=== PATIENT | male | born 1995 | race Caucasian/White ===

== ENCOUNTER 2018-01-17 13:17 | Emergency (ER) | payer OTHER ==
[2018-01-17] MEDS: NS 1,000 ML IV (14:19)
[2018-01-17 14:22] LABS: BASO # 0.1 10^3/uL (0.0-0.2); EOS # 0.3 10^3/uL (0.0-0.50); EOS % 4.1 % (0.0-3.0); HEMATOCRIT 46.8 % (42.0-52.0); HEMOGLOBIN 15.5 g/dl (13.5-17.5); IMMATURE GRANULOCYTE % 0.5 % (0-3.0); LYMPH # 1.8 10^3/uL (1.5-6.5); LYMPH % 29.2 % (24.0-44.0); MEAN CORPUSCULAR HEMOGLOBIN 31.5 pg (27.0-33.0); MEAN CORPUSCULAR HGB CONC 33.1 g/dl (32.0-36.5); MEAN CORPUSCULAR VOLUME 95.1 fl (80.0-96.0); MONO # 0.6 10^3/uL (0.0-0.8); NEUTROPHILS # 3.4 10^3/uL (1.8-7.7); NEUTROPHILS % 56.2 % (36.0-66.0); PLATELET COUNT, AUTOMATED 270 10^3/uL (150-450); RED BLOOD COUNT 4.92 10^6/uL (4.30-6.10); RED CELL DISTRIBUTION WIDTH 12.5 % (11.5-14.5); WHITE BLOOD COUNT 6.1 10^3/uL (4.0-10.0)
[2018-01-17] MEDS: BISACODYL 10 MG SUPP PR (14:30)
[2018-01-17 14:51] LABS: INR 0.99; PROTHROMBIN TIME 13.2 SECONDS (12.4-14.5)
[2018-01-17 14:52] LABS: PARTIAL THROMBOPLASTIN TIME 25.8 SECONDS (26.8-37.9)
[2018-01-17 14:57] LABS: ANION GAP 5 MEQ/L (8-16); BLOOD UREA NITROGEN 12 MG/DL (7-18); CALCIUM LEVEL 9.5 MG/DL (8.5-10.1); CARBON DIOXIDE LEVEL 33 MEQ/L (21-32); CHLORIDE LEVEL 104 MEQ/L (98-107); CREATININE FOR GFR 1.02 MG/DL (0.70-1.30); GLOMERULAR FILTRATION RATE > 60.0 (>60); GLUCOSE, FASTING 104 MG/DL (70-100); POTASSIUM SERUM 4.2 MEQ/L (3.5-5.1); SODIUM LEVEL 142 MEQ/L (136-145)
== END 2018-01-17 17:14 | disposition home or self-care (01) ==
LOC: M ED 13:17
DX: R19.8 Other specified symptoms and signs involving the digestive system and abdomen (principal); R10.31 Right lower quadrant pain; F17.210 Nicotine dependence, cigarettes, uncomplicated
CPT/HCPCS: 74021

== ENCOUNTER 2019-04-04 17:19 | Inpatient (IN) | payer OTHER ==
[~2019-04-04] VITALS: Ht 193 cm; Wt 97.7 kg
[2019-04-04] MEDS ORDERED: NS 1,000 ML IV ONE (18:00)
[2019-04-04 18:21] LABS: HEMATOCRIT 44.3 % (42.0-52.0); HEMOGLOBIN 14.9 g/dl (13.5-17.5); MEAN CORPUSCULAR HEMOGLOBIN 32.2 pg (27.0-33.0); MEAN CORPUSCULAR HGB CONC 33.6 g/dl (32.0-36.5); MEAN CORPUSCULAR VOLUME 95.7 fl (80.0-96.0); PLATELET COUNT, AUTOMATED 287 10^3/uL (150-450); RED BLOOD COUNT 4.63 10^6/uL (4.30-6.10); WHITE BLOOD COUNT 8.3 10^3/uL (4.0-10.0)
[2019-04-04 18:31] LABS: INR 1.07; PROTHROMBIN TIME 13.6 SECONDS (11.8-14.0)
[2019-04-04 18:32] LABS: PARTIAL THROMBOPLASTIN TIME 26.9 SECONDS (25.0-38.4)
[2019-04-04] MEDS ORDERED: NS 1,000 ML IV SCH ×2 (18:34→22:30)
[2019-04-04] MEDS ORDERED: PROPOFOL 200 MG/20 ML VIAL As Ordered ONE (18:44)
[2019-04-04] MEDS ORDERED: ONDANSETRON 4MG/2ML VIAL (J2405) IV ONE (18:45)
[2019-04-04] MEDS: PROPOFOL 200 MG/20 ML VIAL IV PRN ×4 (18:48→19:08)
[2019-04-04 18:49] LABS: BLOOD UREA NITROGEN 4 MG/DL (7-18); CALCIUM LEVEL 8.9 MG/DL (8.5-10.1); CARBON DIOXIDE LEVEL 28 MEQ/L (21-32); CHLORIDE LEVEL 108 MEQ/L (98-107); CREATININE FOR GFR 0.85 MG/DL (0.70-1.30); ETHYL ALCOHOL (ETHANOL) 0.252 % (0.000-0.010); GLOMERULAR FILTRATION RATE > 60.0 (>60); GLUCOSE, FASTING 92 MG/DL (70-100); SODIUM LEVEL 143 MEQ/L (136-145)
[2019-04-04] MEDS: KETAMINE HCL 200 MG/20 ML VIAL IV ONE ×2 (18:49→18:52)
[2019-04-04] MEDS ORDERED: OXYC1TAB23 PO (19:16)
[2019-04-04] MEDS ORDERED: PERCOCET 5MG/325MG TAB PO PRN (22:30)
[2019-04-04 23:00] VITALS: BP 163/88
[2019-04-05] VITALS (19 sets, daily range): BP systolic 135–170; BP diastolic 62–94
--- NOTE | 2019-04-05 05:30 | HPE ---
DATE OF ADMISSION: 04/04/2019 CHIEF COMPLAINT: Left ankle pain and deformity. HISTORY AND PHYSICAL: [place] slipped and injured his left ankle, noticed immediate deformity and presented promptly to [facility] Emergency Room. I was consulted at that time. PAST MEDICAL HISTORY: Only significant for mononucleosis. He was diagnosed about six weeks ago and is currently asymptomatic from that. PAST SURGICAL HISTORY: None. MEDICATIONS: None. ALLERGIES: None. SOCIAL HISTORY: He does smoke one pack per day. 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 REVIEW OF SYSTEMS: Recently no fevers, chills, nausea, vomiting, diarrhea, constipation, chest pain or shortness of breath. PHYSICAL EXAMINATION: GENERAL: Awake, alert and oriented times three. Well-appearing male in no acute distress. He is slightly visibly intoxicated. CARDIOVASCULAR: Regular rate and rhythm. PULMONARY: No increased work of breathing. ABDOMEN: Soft, nontender, nondistended. EXAMINATION OF THE LEFT ANKLE: There is significant deformity about the ankle consistent with the dislocation distally. He does have 2+ dorsalis pedis pulse with sensation intact to light touch in less than 2 seconds capillary refill in all of his toes. The skin is a somewhat tense and blanched on the medial side but it is intact and there is no active bleeding. The ipsilateral leg and knee is grossly atraumatic. X-RAY: X-ray of the left ankle shows fracture dislocation. ASSESSMENT: Left ankle fracture dislocation as above. The risks and benefits of treatment options were discussed and after obtaining consent the left ankle was reduced under sedation provided by the emergency department. I molded the splint; however, the medial clear space was still wide on postreduction x-rays. I did try to redo the splint, molding it a little bit more aggressively and still was unable to maintain a reduction of the medial clear space as again this is a highly unstable injury. Post reduction he is much more comfortable, moving his toes freely. He still has palpable 2+ dorsalis pedis pulse with less than 2 seconds capillary refill and sensation intact to light touch in all of his toes. PLAN: Plan at this time is he will be admitted overnight, elevate the ankle to control swelling. I discussed the case with the anesthesia staff and I will plan for surgery tomorrow morning given his nothing by mouth status and his alcohol status with elevated blood alcohol level we would have to wait certainly for the operation and he has elected to go forward with the left ankle open reduction internal fixation. I will obtain the formal consent for that tomorrow morning. Again for the postreduction x-rays there is still widening of the medial clear space but the talus is reduced underneath the tibia, significantly improved certainly from his injury films and will get the ankle fully reduced and stabilized as soon as we can reasonably. BRAD
--- NOTE | 2019-04-05 07:20 | REP ---
Clinical: Status post reduction. Technique: Portable AP and lateral views of the left ankle. Comparison: 04/04/2019 at 05:45 p.m.. Findings: Fracture dislocation involving the distal fibular metaphysis and ankle joint are again appreciated. Impression: Continued fracture dislocation at the ankle with improved alignment. Electronically Signed by Adama Montenegro MD 04/05/2019 07:11 A
[2019-04-05] MEDS ORDERED: LIDOCAINE 2% INJ 100 MG/5 ML SDV (FOR ANES.) As Ordered ONE (08:19)
[2019-04-05] MEDS ORDERED: ROCURONIUM BROMIDE 50 MG/5 ML VIAL As Ordered ONE (08:19)
[2019-04-05] MEDS ORDERED: dexameTHASONE 4 MG/ML 1ML VIAL (J1100) As Ordered ONE (08:19)
[2019-04-05] MEDS ORDERED: ONDANSETRON 4MG/2ML VIAL (J2405) As Ordered ONE (08:19)
[2019-04-05] MEDS ORDERED: PROPOFOL 200 MG/20 ML VIAL As Ordered ONE ×2 (08:19→12:03)
[2019-04-05] MEDS ORDERED: fentaNYL 250 MCG/5 ML INJECTION (J3010) As Ordered ONE (08:20)
[2019-04-05] MEDS ORDERED: MIDAZOLAM INJ 2 MG/2 ML VIAL (J2250) As Ordered ONE ×2 (08:20→11:07)
--- NOTE | 2019-04-05 08:41 | REP ---
Left ankle four views: There is anterolateral dislocation of the distal tibia. There is a spiral fracture of the distal fibula. No posterior malleolar fractures identified on the views presented. Mineralization is normal. There are no calcifications or foreign bodies. Impression: Fracture dislocation as described. Electronically Signed by Alexander Galarza MD 04/05/2019 08:33 A
[2019-04-05] MEDS ORDERED: ESMOLOL INJ 100MG/10ML VIAL As Ordered ONE (09:25)
[2019-04-05] MEDS ORDERED: fentaNYL 100 MCG/2 ML INJECTION (J3010) As Ordered ONE (11:07)
[2019-04-05] MEDS: MIDAZOLAM INJ 2 MG/2 ML VIAL (J2250) IV PRN ×2 (11:20→11:30)
[2019-04-05] MEDS: fentaNYL 100 MCG/2 ML INJECTION (J3010) IV PRN ×2 (11:20→11:30)
[2019-04-05] MEDS ORDERED: ROPIvacaine 0.5% 30 ML INJECTION (J2795 PER 1MG) ONE (12:00)
[2019-04-05] MEDS ORDERED: EPINEPHrine INJ 1 MG/ML 1ML AMP ONE (12:00)
[2019-04-05] MEDS ORDERED: dexameTHASONE 10 MG/1 ML VIAL PRES.FREE (J1100) ONE (12:00)
--- NOTE | 2019-04-05 13:54 | REP ---
Clinical: Status post fixation. Technique: Intraoperative fluoroscopic evaluation using portable C-arm technique. Findings: The patient is status post satisfactory open reduction and fixation for lateral malleolus fracture. Total fluoroscopic time 60 seconds. Impression: Status post open reduction and fixation. Electronically Signed by Adama Montenegro MD 04/05/2019 01:46 P
[2019-04-05] MEDS ORDERED: MEPERIDINE INJ 25 MG/ML VIAL (J2175) IV PRN (14:30)
[2019-04-05] MEDS ORDERED: PERCOCET 5MG/325MG TAB PO PRN (14:30)
[2019-04-05] MEDS ORDERED: ONDANSETRON 4MG/2ML VIAL (J2405) IV PRN (14:30)
[2019-04-05] MEDS ORDERED: LR 1,000 ML IV SCH (14:30)
[2019-04-05] MEDS ORDERED: METOCLOPRAMIDE INJ 10MG/2ML VIAL (J2765) IV PRN (14:30)
[2019-04-05] MEDS ORDERED: fentaNYL 100 MCG/2 ML INJECTION (J3010) IV PRN (14:30)
[2019-04-05] MEDS ORDERED: PERC5TAB12 PO (15:22)
--- NOTE | 2019-04-05 16:53 | RO ---
DATE OF PROCEDURE: 04/05/2019 PREOPERATIVE DIAGNOSIS: Left ankle Galarza C fibula fracture with dislocation. POSTOPERATIVE DIAGNOSIS: Left ankle Galarza C fibula fracture with dislocation. PROCEDURE PERFORMED: Left ankle open reduction internal fixation. SURGEON: Dr. Alberto Shelton CHIEF LEARNING OFFICER: TONY Garcia Assistant ANESTHESIA: General plus peripheral nerve block. ESTIMATED BLOOD LOSS: 50 mL. IMPLANTS: Arthrex distal fibula locking plate and screws with Arthrex syndesmosis TightRope. No specimens removed. No blood administered. No complications. DESCRIPTION OF PROCEDURE: The patient was identified in the preoperative holding area by name, medical record number, date of . Surgical site was marked in consultation with the patient, and he was evaluated by anesthesia. Peripheral nerve block was placed by anesthesia service. When he was ready, he was brought back to the operative suite on a gurney and transferred to the operating room (OR) table. At this point, general anesthesia was induced, and the left lower extremity was sterilely prepped and draped in the usual fashion. There were no blisters and swelling was moderate, not excessive and felt to be ready to go forward with surgery. Prior to beginning the procedure, a final time-out was performed and all in the room agreed. He was given was given intravenous (IV) antibiotics prior to incision. I began the procedure by exsanguinating the left lower extremity with the Esmarch tourniquet, inflated the left upper thigh tourniquet to 250 mmHg and next made the standard lateral approach to the fibula, dissecting down through the skin and subcutaneous fat. I next bluntly dissected, preserving local neurovascular structures, identified the long fracture site at Galarza B fibula, provisionally reducing it with Lobster Claw and next securing in placement with a 2.7 lag screw with satisfactory fixation and compression across the fracture site. Fluoroscopic views in multiple planes at this point confirmed satisfactory reduction. I next placed an appropriately sized Arthrex distal fibula locking plate, securing it proximally and distally with locking and nonlocking screws. At this point, multiple fluoroscopic views confirmed satisfactory reduction and internal fixation. Dorsiflexion external rotation stress test indicated significant medial clear space widening as expected with a significant syndesmosis injury. I next elected to place a TightRope from Arthrex, placing it just posterior to the plate, first inserting the guidewire and confirming satisfactory position with fluoroscopic views. I next overreamed and inserted the guide wire and while holding the fibula reduced, I next tightened the TightRope and confirmed satisfactory reduction of the medial clear space and position of the button with fluoroscopic views, and dorsiflexion external rotation stress test at this time was negative. Final x-rays in multiple planes confirmed satisfactory open reduction internal fixation and placement of all hardware. The wound was next copiously irrigated and closed in layers. Sterile dressings and a well-padded L and U splint were applied. The tourniquet was deflated, and the patient was brought out of anesthesia. BRAD
== END 2019-04-05 19:45 | disposition home or self-care (01) | DRG 494 ==
LOC: M ED 17:19 → EDBD 17:19 → M ED INP 20:50 → M MS5PR 23:00
PROC: 0QSJ04Z Reposition Right Fibula with Internal Fixation Device, Open Approach (ICD-10-PCS; principal; 2019-04-05 11:00)
DX: S82.442A Displaced spiral fracture of shaft of left fibula, initial encounter for closed fracture (principal); W01.0XXA Fall on same level from slipping, tripping and stumbling without subsequent striking against object, initial encounter; Y92.832 Beach as the place of occurrence of the external cause

== ENCOUNTER 2019-04-06 15:44 | Emergency (ER) | payer OTHER ==
[~2019-04-06] VITALS: Ht 193 cm; Wt 97.7 kg
[~2019-04-06 15:44] MED LIST: OXYC1TAB23 PO; PERC5TAB12 PO
--- NOTE | 2019-04-06 16:43 | REP ---
Clinical: Pain. Technique: AP and lateral views of the left ankle. Comparison: 04/05/2019. Findings: Recent open reduction and fixation for left fibular fracture noted. Overlying soft tissue swelling and small amounts of subcutaneous emphysema consistent with postoperative changes. No obvious acute process. Impression: Postoperative changes as noted above. Electronically Signed by Adama Montenegro MD 04/06/2019 04:34 P
[2019-04-06 16:45] LABS: BASO % 0.3 % (0.0-1.0); EOS # 0.1 10^3/uL (0.0-0.50); EOS % 0.8 % (0.0-3.0); HEMATOCRIT 42.1 % (42.0-52.0); HEMOGLOBIN 14.1 g/dl (13.5-17.5); LYMPH % 18.8 % (24.0-44.0); MEAN CORPUSCULAR HEMOGLOBIN 31.8 pg (27.0-33.0); MEAN CORPUSCULAR HGB CONC 33.5 g/dl (32.0-36.5); MONO % 8.8 % (0.0-5.0); NEUTROPHILS # 7.6 10^3/uL (1.8-7.7); NEUTROPHILS % 70.8 % (36.0-66.0); PLATELET COUNT, AUTOMATED 261 10^3/uL (150-450); RED BLOOD COUNT 4.43 10^6/uL (4.30-6.10); WHITE BLOOD COUNT 10.8 10^3/uL (4.0-10.0)
[2019-04-06] MEDS: MORPHINE 2 MG/ML 1ML VIAL (J2270) IV PRN ×2 (17:04→18:29)
[2019-04-06 17:14] LABS: BLOOD UREA NITROGEN 9 MG/DL (7-18); CALCIUM LEVEL 8.7 MG/DL (8.5-10.1); CARBON DIOXIDE LEVEL 31 MEQ/L (21-32); CHLORIDE LEVEL 101 MEQ/L (98-107); GLOMERULAR FILTRATION RATE > 60.0 (>60); GLUCOSE, FASTING 93 MG/DL (70-100); SODIUM LEVEL 137 MEQ/L (136-145)
--- NOTE | 2019-04-06 18:36 | REPVR ---
EXAM: US Duplex Left Lower Extremity Veins, Limited EXAM DATE/TIME: 04/06/2019 6:05 PM CLINICAL HISTORY: 23 years old, male; Pain; Leg, lower; Left; Prior surgery; Surgery date: Post-operative (0-2 days); Surgery type: Ankle surgery yesterday TECHNIQUE: Imaging protocol: Real-time Duplex ultrasound of the Left Lower Extremity with 2-D barros scale, color Doppler flow and spectral waveform analysis. Limited exam focused on the left lower extremity veins. COMPARISON: No relevant prior studies available. FINDINGS: Left deep veins: Unremarkable. The common femoral, femoral (triple lumen mid segment), proximal profunda femoral and popliteal veins are patent without thrombus. Normal Doppler waveforms. Normal compressibility and/or augmentation response. Left superficial veins: Unremarkable. Saphenofemoral junction is patent without thrombus. Soft tissues: Unremarkable. IMPRESSION: No acute findings. No evidence of deep vein thrombosis. Electronically signed by: Alberto Camargo On 04/06/2019 18:35:43 PM
[2019-04-06] MEDS ORDERED: PERCOCET 5MG/325MG TAB PO ONE ×2 (20:30→22:00)
[2019-04-06 22:02] VITALS: BP 133/68
== END 2019-04-06 22:05 | disposition home or self-care (01) ==
LOC: M ED 15:44 → EDBD 15:44 → M ED 22:05
DX: S82.892D Other fracture of left lower leg, subsequent encounter for closed fracture with routine healing (principal); X58.XXXD Exposure to other specified factors, subsequent encounter; Y92.89 Other specified places as the place of occurrence of the external cause
CPT/HCPCS: 29515; 73600; 80048; 85025; 93971; 96374; 96376; 99284; J2270